=== PATIENT | female | born 1980 | race Caucasian/White ===

== ENCOUNTER 2024-01-02 07:01 | Emergency (ER) | payer MEDICARE, OTHER ==
[~2024-01-02] VITALS: Ht 167.6 cm; Wt 99.1 kg
[2024-01-02] MEDS ORDERED: FAMO20 PO (07:13)
[2024-01-02] MEDS ORDERED: PANT-31 PO (07:13)
[2024-01-02] MEDS ORDERED: MONT-35 PO (07:13)
[2024-01-02] MEDS ORDERED: ALBU18HF12 IH (07:13)
[2024-01-02] MEDS ORDERED: LAMO25TA36 PO (07:13)
[2024-01-02] MEDS ORDERED: BACL10TA PO (07:13)
[2024-01-02] MEDS ORDERED: TIZA-211 PO (07:13)
[2024-01-02] MEDS ORDERED: ACET-2247 PO (07:13)
[2024-01-02] MEDS ORDERED: OXYC10TA59 PO (07:13)
[2024-01-02 07:17] VITALS: TEMP 98.3
[2024-01-02] MEDS: KETOROLAC TROMETHAMINE 60 MG/2 ML VIAL IM ONE (07:59)
[2024-01-02 08:00] VITALS: BP 130/75; PULSE 75; RESP 18; O2SAT 98
== END 2024-01-02 08:41 | disposition home or self-care (01) ==
LOC: EMS 07:03
DX: S16.1XXA Strain of muscle, fascia and tendon at neck level, initial encounter (principal); S09.90XA Unspecified injury of head, initial encounter; J45.909 Unspecified asthma, uncomplicated; K21.9 Gastro-esophageal reflux disease without esophagitis; Z90.49 Acquired absence of other specified parts of digestive tract; Z88.0 Allergy status to penicillin; Z88.2 Allergy status to sulfonamides; X58.XXXA Exposure to other specified factors, initial encounter; Y93.89 Activity, other specified; Y92.89 Other specified places as the place of occurrence of the external cause; Y99.8 Other external cause status
CPT/HCPCS: 99283; 96372; J1885